=== PATIENT | male | born 1955 | race Caucasian/White ===

== ENCOUNTER → 2020-01-09 08:43 | Outpatient (CLI) | payer MEDICARE, BC ==
[2010-10-04 10:20] VITALS: BMI 27.1
== END | disposition home or self-care (01) ==
LOC: D.CT 08:43
PROVIDERS: ATTEND Internal Medicine Nephrology
DX: K46.9 Unspecified abdominal hernia without obstruction or gangrene (principal)

== ENCOUNTER → 2020-01-17 10:16 | Outpatient (CLI) | payer MEDICARE, BC ==
[2010-10-04 10:20] VITALS: BMI 27.1
== END | disposition home or self-care (01) ==
LOC: D.CT 10:16
PROVIDERS: ATTEND Nurse Practitioner Family
DX: K40.91 Unilateral inguinal hernia, without obstruction or gangrene, recurrent (principal)